=== PATIENT | female | born 1970 ===

== ENCOUNTER 2018-02-24 15:14 | Emergency (ER) | payer OTHER ==
[2018-02-24 15:45] VITALS: BMI 33.3
--- NOTE | 2018-02-24 17:31 | ED PDOC ---
Arrival/HPI - General Chief Complaint: Back Pain Time Seen by Provider: 02/24/18 16:09 Historian: Patient - History of Present Illness Narrative History of Present Illness (Text): 02/24/18 16:22 47 year old female, with no significant past medical history, presents to the Emergency department complaining of mid thoracic back pain since 2 weeks. Patient informs non radiating localized mid back pain, unimproved after taking Flexeril prescribed by PMD. Patient states the pain has been "wrapping around her right rib cage" for past 2 days, prompting her to present to the Emergency department for medical evaluation. Patient denies any trauma, fall, fever, chills, nausea, vomiting, diarrhea, abdominal pain, chest pain, shortness of breath, cough or any other complaints. Time/Duration: > week (2 weeks) Symptom Onset: Gradual Symptom Course: Unchanged Quality: Aching Activities at Onset: Light Past Medical History - Provider Review Nursing Documentation Reviewed: Yes - Infectious Disease Hx of Infectious Diseases: None - Musculoskeletal/Rheumatological Other/Comment: chronic neck pain - Gastrointestinal Other/Comment: hernia - Psychiatric Hx Substance Use: No - Surgical History Hx Cholecystectomy: Yes - Anesthesia Hx Anesthesia: Yes Hx Anesthesia Reactions: No Hx Malignant Hyperthermia: No Family/Social History - Physician Review Nursing Documentation Reviewed: Yes Family/Social History: No Known Family HX Smoking Status: Never Smoked Hx Alcohol Use: No Hx Substance Use: No Allergies/Home Meds Allergies/Adverse Reactions: Allergies No Known Allergies Allergy (Verified 02/24/18 15:45) Home Medications: Home Meds Medication Instructions Recorded Confirmed Cyclobenzaprine [Flexeril] 1 tab PO BID PRN 02/24/18 02/24/18 Review of Systems - Physician Review All systems were reviewed & negative as marked: Yes - Review of Systems Constitutional: absent: Fevers Respiratory: absent: SOB, Cough Cardiovascular: absent: Chest Pain Gastrointestinal: absent: Abdominal Pain, Diarrhea, Nausea, Vomiting Musculoskeletal: Back Pain (mid thoracic ) Physical Exam Vital Signs Reviewed: Yes Vital Signs Temp Pulse Resp BP Pulse Ox 02/24/18 18:42 97.9 F 88 16 130/82 95 02/24/18 17:35 90 16 128/82 99 02/24/18 15:50 98.6 F 94 H 18 134/86 96 Temperature: Afebrile Blood Pressure: Normal Pulse: Regular Respiratory Rate: Normal Appearance: Positive for: Well-Appearing, Non-Toxic, Comfortable Pain Distress: None Mental Status: Positive for: Alert and Oriented X 3 - Systems Exam Head: Present: Atraumatic, Normocephalic Pupils: Present: PERRL Extroacular Muscles: Present: EOMI Conjunctiva: Present: Normal Mouth: Present: Moist Mucous Membranes Neck: Present: Normal Range of Motion Respiratory/Chest: Present: Clear to Auscultation, Good Air Exchange. No: Respiratory Distress, Accessory Muscle Use Cardiovascular: Present: Regular Rate and Rhythm, Normal S1, S2. No: Murmurs Abdomen: No: Tenderness, Distention, Peritoneal Signs Back: Present: Normal Inspection. No: CVA Tenderness, Midline Tenderness, Paraspinal Tenderness Upper Extremity: Present: Normal Inspection. No: Cyanosis, Edema Lower Extremity: Present: Normal Inspection. No: Edema Neurological: Present: GCS=15, CN II-XII Intact, Speech Normal Skin: Present: Warm, Dry, Normal Color. No: Rashes Psychiatric: Present: Alert, Oriented x 3, Normal Insight, Normal Concentration Medical Decision Making ED Course and Treatment: 02/24/18 16:22 Impression: 47 year old female presents to the Emergency department complaining of back pain. Plan: -- CT of thoracic spine -- Reassess and disposition Prior Visits: Notes and results from previous visits were reviewed. Progress Notes: 02/24/18 18:40 CT of thoracic spine reviewed by radiologist, shows: No acute fracture or destructive bony lesion. Evaluation of the discs and spinal cord is limited on noncontrast CT examination. Allowing for this, no large disc herniation neural foraminal or spinal canal stenosis. - RAD Interpretation Radiology Orders: 02/24/18 16:16 THORACIC SPINE W/O CONT [CT] Stat Auto Clutch Specialist: Radiologist - Scribe Statement The provider has reviewed the documentation as recorded by the Scribe Danny Cintron. All medical record entries made by the Scribe were at my direction and personally dictated by me. I have reviewed the chart and agree that the record accurately reflects my personal performance of the history, physical exam, medical decision making, and the department course for this patient. I have also personally directed, reviewed, and agree with the discharge instructions and disposition. Disposition/Present on Arrival - Present on Arrival Any Indicators Present on Arrival: No History of DVT/PE: No History of Uncontrolled Diabetes: No Urinary Catheter: No History of Decub. Ulcer: No History Surgical Site Infection Following: None - Disposition Have Diagnosis and Disposition been Completed?: Yes Diagnosis: Mid back pain Disposition: HOME/ ROUTINE Disposition Time: 18:20 Condition: GOOD Discharge Instructions (ExitCare): Upper Back Pain (DC) Additional Instructions: JERMAINE CONTRERAS, thank you for letting us take care of you today. Your provider was Lui Mccarty DO and you were treated for BACK PAIN. The emergency medical care you received today was directed at your acute symptoms. If you were prescribed any medication, please fill it and take as directed. It may take several days for your symptoms to resolve. Return to the Emergency Department if your symptoms worsen, do not improve, or if you have any other problems. Please contact your doctor or call one of the physicians/clinics you have been referred to that are listed on the Patient Visit Information form that is included in your discharge packet. Bring any paperwork you were given at discharge with you along with any medications you are taking to your follow up visit. Our treatment cannot replace ongoing medical care by a primary care provider outside of the emergency department. Thank you for allowing the [facility] team to be part of your care today. Follow up with your primary care doctor this week for re-evaluation and further management. Prescriptions: traMADol [Ultram] 50 mg PO Q8 PRN #15 tab PRN Reason: Pain, Severe (8-10) Referrals: [facility] Dinora Schofield, [Non-Staff] - Follow up with primary Forms: [employer] (Persian)
--- NOTE | 2018-02-24 18:20 | CT ---
Date of service: 02/24/2018 PROCEDURE: CT Thoracic Spine without contrast HISTORY: Back pain -paresthesia to right rib area at T-9/10 area COMPARISON: None. TECHNIQUE: Axial computed tomography images were obtained of the thoracic spine without intravenous contrast. Coronal and sagittal reformatted images were created and reviewed. Radiation dose: Total exam DLP = 921.78 mGy-cm. This CT exam was performed using one or more of the following dose reduction techniques: Automated exposure control, adjustment of the mA and/or kV according to patient size, and/or use of iterative reconstruction technique. FINDINGS: VERTEBRAE: There is normal alignment of the thoracic vertebral bodies. There is normal thoracic kyphosis. Bone mineralization is normal. There is no acute fracture or destructive bony lesion. DISCS/SPINAL CANAL/NEURAL FORAMINA: Within the limits of the CT technique, there is multilevel anterior spurring in the thoracic vertebral bodies. The disc heights are maintained. The spinal canal is grossly patent. PARASPINAL SOFT TISSUES: The paraspinous soft tissues are normal. OTHER FINDINGS: Unremarkable. IMPRESSION: No acute fracture or destructive bony lesion. Evaluation of the discs and spinal cord is limited on noncontrast CT examination. Allowing for this, no large disc herniation neural foraminal or spinal canal stenosis.
[2018-02-24 19:36] VITALS: RESP 16
[2018-02-24 19:38] VITALS: BP 130/82; PULSE 88; TEMP 97.9; O2SAT 95
== END 2018-02-24 18:42 | disposition home or self-care (01) ==
LOC: MERGE 15:14 → ED 15:14
DX: M54.6 Pain in thoracic spine (principal)